=== PATIENT | male | born 1975 | race Caucasian/White ===

== ENCOUNTER → 2016-08-11 | Outpatient (CLI) | payer MEDICARE, MEDICAID | END | disposition home or self-care (01) | LOC: LAB.O 09:05 | PROVIDERS: ATTEND Family Medicine | DX: Z79.899 Other long term (current) drug therapy (principal); E55.9 Vitamin D deficiency, unspecified; E78.2 Mixed hyperlipidemia; G40.409 Other generalized epilepsy and epileptic syndromes, not intractable, without status epilepticus ==

== ENCOUNTER 2016-10-20 12:05 | Emergency (ER) | payer MEDICARE, MEDICAID ==
[2016-10-20 12:26] VITALS: TEMP 97.6
--- NOTE | 2016-10-20 13:08 | ED.PDOC ---
History of Present Illness - General Chief Complaint: Lower Extremity Injury Stated Complaint: RLE pain Time Seen by Provider: 10/20/16 12:38 Source: other - Caregiver/social insurance administrator Exam Limitations: other - mental retardation - History of Present Illness Initial Comments: Patient is a 40 yo with MR, institutionalized, who presents after caregivers noticed that he had a limp on his right leg today and had a fall onto his buttocks yesterday. No other information is available because of the patient's inability to communicate specifics but he can communicate that he is in pain. Timing/Duration: 24 hours Severity: mild Improving Factors: rest Worsening Factors: movement Associated Symptoms: other - unable to obtain more information Allergies/Adverse Reactions: Allergies Acetazolamide [From Diamox Sequels] Allergy (Verified 10/20/16 12:26) Home Medications: Ambulatory Orders Amoxicillin [Amoxil] 500 mg PO Q8HRS #30 cap 03/22/14 Carbamazepine Tab [Tegretol] 300 mg PO BID 03/22/14 Carbamide Peroxide Otic [Debrox Otic] 15 ml BOTH_EARS WKLY 03/22/14 Clorazepate Dipotassium [Tranxene T] 7.5 mg PO TID 03/22/14 Clorazepate Dipotassium [Tranxene T] 15 mg PO BEDTIME 03/22/14 Lamotrigine [Lamictal Odt] 125 mg PO TID 03/22/14 Loratadine [Claritin] 10 mg PO DAILY 03/22/14 Phenytoin Sodium Cap [Dilantin Cap] 100 mg PO DAILY 03/22/14 Phenytoin Sodium Cap [Dilantin Cap] 300 mg PO BEDTIME 03/22/14 Risperidone [Risperdal] 3 mg PO BID 03/22/14 Rosuvastatin [Crestor] 2.5 mg PO DAILY 03/22/14 Tiagabine HCl [Gabitril] 12 mg PO TID 03/22/14 Topiramate [Topamax] 50 mg PO BID 03/22/14 Cephalexin [Keflex] 500 mg PO QID #28 cap 06/10/15 Review of Systems - Review of Systems Unable to Obtain Due To: condition, other - mental retardation Past Medical History (General) - Patient Medical History Hx Seizures: Yes Hx Stroke: No Hx Dementia: Yes Hx Asthma: Yes Hx Congestive Heart Failure: No Hx Diabetes: Yes - Vaccination History Hx Tetanus, Diphtheria Vaccination: No Hx Influenza Vaccination: No Hx Pneumococcal Vaccination: No - Social History Hx Tobacco Use: No Hx Chewing Tobacco Use: No Hx Alcohol Use: No Hx Substance Use: No Hx Substance Use Treatment: No Hx Depression: No - Female History Patient is a Female of Child Bearing Age (10 -59 yrs old): No Patient : No Family Medical History - Family History Mother Family History: Unknown Living Status: Unknown Physical Exam - Physical Exam General Appearance: Alert Respiratory: lungs clear Cardiovascular/Chest: normal peripheral pulses, regular rate, rhythm Gastrointestinal/Abdominal: normal bowel sounds, non tender, soft Extremity: other - passive flexion and extension of the right hip do not cause pain. Right hip is NTTP. Lumbar vertebrae are NTTP. Right knee is stable with negative Michelle's sign. Patient does not show any signs of pain with varus and valgus tests. Progress - Progress Progress: 10/20/16 15:20 5 view of lumbar showed possible L3 endplate fracture. CT lumbar confirmed this but it is unclear if it is acute or not. 2 view of right hip was normal. Departure - Departure Clinical Impression: Lumbar vertebral fracture Disposition: Discharge to Home or Self Care Condition: Good Departure Forms: ED Discharge - Pt. Copy, Patient Portal Self Enrollment Diet: resume usual diet Activity: no exercise, no lifting, other Referrals: Valentin Reed III, MD [Primary Care Provider] - 1-2 Weeks Home Medications: Ambulatory Orders Amoxicillin [Amoxil] 500 mg PO Q8HRS #30 cap 03/22/14 Carbamazepine Tab [Tegretol] 300 mg PO BID 03/22/14 Carbamide Peroxide Otic [Debrox Otic] 15 ml BOTH_EARS WKLY 03/22/14 Clorazepate Dipotassium [Tranxene T] 7.5 mg PO TID 03/22/14 Clorazepate Dipotassium [Tranxene T] 15 mg PO BEDTIME 03/22/14 Lamotrigine [Lamictal Odt] 125 mg PO TID 03/22/14 Loratadine [Claritin] 10 mg PO DAILY 03/22/14 Phenytoin Sodium Cap [Dilantin Cap] 100 mg PO DAILY 03/22/14 Phenytoin Sodium Cap [Dilantin Cap] 300 mg PO BEDTIME 03/22/14 Risperidone [Risperdal] 3 mg PO BID 03/22/14 Rosuvastatin [Crestor] 2.5 mg PO DAILY 03/22/14 Tiagabine HCl [Gabitril] 12 mg PO TID 03/22/14 Topiramate [Topamax] 50 mg PO BID 03/22/14 Cephalexin [Keflex] 500 mg PO QID #28 cap 06/10/15 Additional Instructions: No lifting more than 15 pounds for 6 weeks. Refrain from exercise for 6 weeks or until cleared by neurosurgeon. May return to regular daily activity as tolerated. May use tylenol or ibuprofen as directed. Heating pad to lower back twice per day for 4 weeks. Follow up with primary care physician in 2 weeks for recheck of the lower back.
--- NOTE | 2016-10-20 13:18 | RAD ---
EXAM DESCRIPTION: Hip,Right 2 Views CLINICAL HISTORY: Right hip pain. Fall injury FINDINGS/ IMPRESSION: No fracture or osteochondral lesion. Inferior acetabular osteophyte ridge. Normal mineralization. No advanced osteoarthritis. No fracture of the pelvis Electronically signed by: Genaro Koehler MD 10/20/2016 1:17 PM CDT
--- NOTE | 2016-10-20 13:20 | RAD ---
EXAM DESCRIPTION: Lumbar Spine 5 Views CLINICAL HISTORY: 40 years Male, pain after fall IMPRESSION: Five views of the lumbar spine. There is normal alignment. There is a possible superior endplate fracture of L3. No degenerative retropulsion. Remaining vertebral body heights are unremarkable. I would recommend an MRI of the lumbar spine. No osseous lesion noted. Electronically signed by: Xavier Davalos MD 10/20/2016 1:19 PM CDT
--- NOTE | 2016-10-20 14:57 | CT ---
EXAM DESCRIPTION: Lumbar Spine CLINICAL HISTORY: 40 years, Male, possible lumbar fracture COMPARISON: None TECHNIQUE: Lumbar CT with thin-section axial imaging with reconstructed MPR images reviewed as well. This exam was performed according to our departmental dose-optimization program, which includes automated exposure control, adjustment of the mA and/or kV according to patient size and/or use of iterative reconstruction technique. FINDINGS: Noncontrast CT of the lumbar spine with MPR reformatted images demonstrates normal alignment. There is very slight impaction of the superior endplate of L3 particularly anteriorly with no definite fracture of the anterior cortex identified. This could represent either a new or old abnormality. There is no associated paraspinous hematoma or disruption of the fat planes. The other vertebral bodies appear intact and unremarkable. Discrete acute fracture lines within the superior endplate of L3 to confirm an acute abnormality is not identified. Disc contours from L3-4 cephalad are essentially normal. At L4-5, there is a modest central and left parasagittal disc protrusion, age indeterminate but focal increased clearly abnormal and different than a generalized annular bulge. No significant stenosis of the canal is seen. At L5-S1 and generalized annular bulge that is most prominent centrally and minimally asymmetric and prominent to the left suggesting a minimal component of disc protrusion is present. No severe or significant neural compression is seen. IMPRESSION: 1. Mild central and anterior impaction of the superior endplate of L3 without loss of anterior vertebral height without distinct fracture lines or paraspinous hematoma noted. I'm uncertain whether this represents an acute or old abnormality but no convincing changes to confirm an acute fracture is evident 2. Bony spine is otherwise normal and the disc spaces are normal from L3-4 cephalad. 3. Modest central and left parasagittal disc protrusion L4-5 without stenosis 4. Annular bulge L5-S1 with mild central and left-sided prominence but without significant neural compression. Electronically signed by: Genaro Luz MD 10/20/2016 2:56 PM CDT
[2016-10-20 15:13] VITALS: BP 132/87; O2SAT 97
== END 2016-10-20 15:32 | disposition home or self-care (01) ==
LOC: ER 12:05
DX: S32.039A Unspecified fracture of third lumbar vertebra, initial encounter for closed fracture (principal); E11.9 Type 2 diabetes mellitus without complications; J45.909 Unspecified asthma, uncomplicated; F03.90 Unspecified dementia, unspecified severity, without behavioral disturbance, psychotic disturbance, mood disturbance, and anxiety; F79 Unspecified intellectual disabilities; Z88.8 Allergy status to other drugs, medicaments and biological substances; Z79.899 Other long term (current) drug therapy; W19.XXXA Unspecified fall, initial encounter; Y92.9 Unspecified place or not applicable

== ENCOUNTER → 2017-03-29 | Emergency (ER) | payer MEDICARE, MEDICAID ==
[~2017-03-29] MED LIST: CLINDAMYCIN PHOSPHATE 150 MG/ML VIAL IM ONE; IPRATROPIUM/ALBUTEROL 3 ML VIAL NEB ONE
[2017-03-30 04:18] VITALS: O2SAT 98
--- NOTE | 2017-03-30 05:38 | RAD ---
EXAM DESCRIPTION: Chest,1 View CLINICAL HISTORY: possible aspiration COMPARISON: None. FINDINGS: Single frontal view of the chest. The cardiomediastinal silhouette has normal size and contour. Left lower lung consolidation with possible left pleural effusion. No pneumothorax. No displaced rib fractures identified. Upper abdominal soft tissues are unremarkable. IMPRESSION: 1. Left lower lobe consolidation concerning for pneumonia with likely small left pleural effusion. Electronically signed by: Brent Pabon 03/30/2017 5:37 AM [facility]
== END ==
LOC: ER 17:46
DX: J69.0 Pneumonitis due to inhalation of food and vomit (principal)
CPT/HCPCS: 94640; J3490; J7620

== ENCOUNTER 2017-05-10 17:32 | Emergency (ER) | payer MEDICARE, MEDICAID ==
[2017-05-10 17:53] VITALS: TEMP 97.8
--- NOTE | 2017-05-10 18:02 | ED.PDOC ---
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 IT IS UNKNOWN WHETHER OR NOT PT HAS HAD FEVER. HPI AND ROS LIMITED DUE TO PTS MENTAL CAPACITY. Timing/Duration: week Cough Quality/Degree: moderate Improving Factors: nothing Worsening Factors: nothing Associated Symptoms: cough, other - DIARRHEA Allergies/Adverse Reactions: Allergies Acetazolamide [From Diamox Sequels] Allergy (Verified 05/10/17 17:53) Home Medications: Ambulatory Orders Amoxicillin [Amoxil] 500 mg PO Q8HRS #30 cap 03/22/14 Carbamazepine Tab [Tegretol] 300 mg PO BID 03/22/14 Carbamide Peroxide Otic [Debrox Otic] 15 ml BOTH_EARS WKLY 03/22/14 Clorazepate Dipotassium [Tranxene T] 7.5 mg PO TID 03/22/14 Clorazepate Dipotassium [Tranxene T] 15 mg PO BEDTIME 03/22/14 Lamotrigine [Lamictal Odt] 125 mg PO TID 03/22/14 Loratadine [Claritin] 10 mg PO DAILY 03/22/14 Phenytoin Sodium Cap Extended [Dilantin Cap] 100 mg PO DAILY 03/22/14 Phenytoin Sodium Cap Extended [Dilantin Cap] 300 mg PO BEDTIME 03/22/14 Risperidone [Risperdal] 3 mg PO BID 03/22/14 Rosuvastatin [Crestor] 2.5 mg PO DAILY 03/22/14 Tiagabine HCl [Gabitril] 12 mg PO TID 03/22/14 Topiramate [Topamax] 50 mg PO BID 03/22/14 Cephalexin [Keflex] 500 mg PO QID #28 cap 06/10/15 Albuterol Inhaler [Ventolin Hfa Inhaler] 2 puff INH Q4HR PRN #1 inh 05/10/17 Albuterol Sulfate Nebs [Proventil Nebs] 2.5 mg INH Q4HR PRN #90 vial 05/10/17 Benzonatate Perles [Tessalon Perles] 200 mg PO TID PRN #30 cap 05/10/17 Levofloxacin [Levaquin] 750 mg PO DAILY 5 Days #5 tablet 05/10/17 Spacer/Aerosol-Holding Chamber [Aerochamber Plus] 1 mis INH DAILY #1 05/10/17 Review of Systems - Review of Systems Constitutional: States: see HPI Respiratory: States: see HPI, cough. Denies: short of breath Cardiology: States: see HPI Gastrointestinal/Abdominal: States: diarrhea. 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 Surgical History: no surgical history - Vaccination History Hx Tetanus, Diphtheria Vaccination: No Hx Influenza Vaccination: No Hx Pneumococcal Vaccination: No Immunizations Up to Date: Yes - Social History Hx Tobacco Use: No Hx Chewing Tobacco Use: No Hx Alcohol Use: No Hx Substance Use: No Hx Substance Use Treatment: No Hx Depression: No - Female History Patient : No Family Medical History - Family History Mother Family History: Unknown Living Status: Unknown Physical Exam - Physical Exam General Appearance: Alert, Comfortable, No apparent distress, Well Groomed, Well Hydrated, Well Nourished ENT Exam: normal ENT inspection Neck: non-tender, normal inspection Respiratory: lungs clear, no respiratory distress, no accessory muscle use, decreased breath sounds Cardiovascular/Chest: regular rate, rhythm, no murmur Gastrointestinal/Abdominal: non tender, soft Extremity: normal inspection Neurologic: alert Skin Exam: normal color, warm/dry Departure - Departure Clinical Impression: Acute bronchitis Time of Disposition: 18:46 Disposition: Discharge to Asst Living Condition: Good Departure Forms: ED Discharge - Pt. Copy, Patient Portal Self Enrollment Instructions: DI for Acute Bronchitis Diet: resume usual diet Activity: increase activity as tolerated Referrals: Valentin Reed III, MD [Primary Care Provider] - 1-5 Days Prescriptions: Albuterol Inhaler [Ventolin Hfa Inhaler] 2 puff INH Q4HR PRN #1 inh PRN Reason: Shortness Of Breath/Wheezing Albuterol Sulfate Nebs [Proventil Nebs] 2.5 mg INH Q4HR PRN #90 vial PRN Reason: Shortness Of Breath/Wheezing Benzonatate Perles [Tessalon Perles] 200 mg PO TID PRN #30 cap PRN Reason: Cough Levofloxacin [Levaquin] 750 mg PO DAILY 5 Days #5 tablet Spacer/Aerosol-Holding Chamber [Aerochamber Plus] 1 mis INH DAILY #1 Home Medications: Ambulatory Orders Amoxicillin [Amoxil] 500 mg PO Q8HRS #30 cap 03/22/14 Carbamazepine Tab [Tegretol] 300 mg PO BID 03/22/14 Carbamide Peroxide Otic [Debrox Otic] 15 ml BOTH_EARS WKLY 03/22/14 Clorazepate Dipotassium [Tranxene T] 7.5 mg PO TID 03/22/14 Clorazepate Dipotassium [Tranxene T] 15 mg PO BEDTIME 03/22/14 Lamotrigine [Lamictal Odt] 125 mg PO TID 03/22/14 Loratadine [Claritin] 10 mg PO DAILY 03/22/14 Phenytoin Sodium Cap Extended [Dilantin Cap] 100 mg PO DAILY 03/22/14 Phenytoin Sodium Cap Extended [Dilantin Cap] 300 mg PO BEDTIME 03/22/14 Risperidone [Risperdal] 3 mg PO BID 03/22/14 Rosuvastatin [Crestor] 2.5 mg PO DAILY 03/22/14 Tiagabine HCl [Gabitril] 12 mg PO TID 03/22/14 Topiramate [Topamax] 50 mg PO BID 03/22/14 Cephalexin [Keflex] 500 mg PO QID #28 cap 06/10/15 Albuterol Inhaler [Ventolin Hfa Inhaler] 2 puff INH Q4HR PRN #1 inh 05/10/17 Albuterol Sulfate Nebs [Proventil Nebs] 2.5 mg INH Q4HR PRN #90 vial 05/10/17 Benzonatate Perles [Tessalon Perles] 200 mg PO TID PRN #30 cap 05/10/17 Levofloxacin [Levaquin] 750 mg PO DAILY 5 Days #5 tablet 05/10/17 Spacer/Aerosol-Holding Chamber [Aerochamber Plus] 1 mis INH DAILY #1 05/10/17
--- NOTE | 2017-05-10 18:21 | RAD ---
EXAM DESCRIPTION: Chest,1 View CLINICAL HISTORY: cough COMPARISON: 03/29/2017 FINDINGS: Cardiac silhouette is within normal limits. There is consolidation that has improved at the left lung base. Bilateral peribronchial cuffing is present. Visualized osseous structures are within normal limits. IMPRESSION: Improved left lung base consolidation. Edema/inflammation of the airways. Electronically signed by: Balbir Solomon 05/10/2017 6:20 PM [employer]
[2017-05-10] MEDS ORDERED: IPRATROPIUM/ALBUTEROL 3 ML VIAL NEB ONE (18:23)
[2017-05-10] MEDS ORDERED: levoFLOXacin 500 MG TAB PO ONE (18:23)
[2017-05-10] MEDS ORDERED: BENZONATATE PERLES 100 MG CAP PO ONE (18:23)
[2017-05-10 19:02] VITALS: BP 147/82; O2SAT 97
--- NOTE | 2017-05-12 09:33 | RAD ---
EXAM DESCRIPTION: Chest,1 View CLINICAL HISTORY: cough COMPARISON: 03/29/2017 FINDINGS: Cardiac silhouette is within normal limits. There is consolidation that has improved at the left lung base. Bilateral peribronchial cuffing is present. Visualized osseous structures are within normal limits. IMPRESSION: Improved left lung base consolidation. Edema/inflammation of the airways. Electronically signed by: Balbir Solomon 05/10/2017 6:20 PM [facility]
== END 2017-05-10 19:02 ==
LOC: ER 17:32
DX: J20.9 Acute bronchitis, unspecified (principal); E11.9 Type 2 diabetes mellitus without complications; F03.90 Unspecified dementia, unspecified severity, without behavioral disturbance, psychotic disturbance, mood disturbance, and anxiety; F79 Unspecified intellectual disabilities; Z87.820 Personal history of traumatic brain injury
CPT/HCPCS: 71045; 87502; 94640; J7620

== ENCOUNTER → 2017-08-17 | Outpatient (CLI) | payer MEDICARE, MEDICAID | LOC: LAB.O 09:09 | PROVIDERS: ATTEND Family Medicine | DX: E78.2 Mixed hyperlipidemia (principal); G40.909 Epilepsy, unspecified, not intractable, without status epilepticus; E53.8 Deficiency of other specified B group vitamins; E55.9 Vitamin D deficiency, unspecified; Z79.899 Other long term (current) drug therapy ==

== ENCOUNTER → 2017-08-26 | Outpatient (CLI) | payer MEDICARE, MEDICAID | LOC: GMAL 14:25 | PROVIDERS: ATTEND Family Medicine | DX: R33.8 Other retention of urine (principal); Z12.5 Encounter for screening for malignant neoplasm of prostate | CPT/HCPCS: 87086; G0103 ==

== ENCOUNTER → 2017-08-27 | Outpatient (CLI) | payer MEDICARE, MEDICAID ==
--- NOTE | 2017-08-28 10:01 | US ---
EXAM DESCRIPTION: Renal and bladder sonogram CLINICAL HISTORY: 41 years Male, RETENTION OF URINE COMPARISON: None. TECHNIQUE: Retroperitoneal sonogram was performed to evaluate the kidneys and bladder. FINDINGS: Right kidney Right renal length is 11.5 cm. Renal cortical thickness and echogenicity are normal. No right renal mass or shadowing stone. No hydronephrosis. Small cyst in the upper right kidney measures 1.3 cm. Left kidney Left renal length is 11.1 cm. Renal cortical thickness and echogenicity are normal. No left renal mass or cyst. Small echogenic focus measuring 5 mm is seen without shadowing. No hydronephrosis. Urinary bladder Bladder wall thickness is normal for degree of distention. No bladder mass. Bladder volume is measured as 61.6 mL. After voiding, repeat measurement shows post void volume of 4 mL. IMPRESSION: Normal sonographic appearance of the kidneys. Unremarkable appearance of the partially filled urinary bladder. Electronically signed by: Mitchell Liang MD 08/28/2017 9:59 AM CDT
== END ==
LOC: US 07:40
PROVIDERS: ATTEND Family Medicine
DX: R33.8 Other retention of urine (principal)

== ENCOUNTER 2018-08-29 17:34 | Emergency (ER) | payer MEDICARE, MEDICAID ==
[2018-08-29] MEDS ORDERED: IPRATROPIUM/ALBUTEROL 3 ML VIAL NEB ONE (17:54)
[2018-08-29 18:15] VITALS: TEMP 98.9
--- NOTE | 2018-08-29 18:22 | RAD ---
EXAM: XR Chest, 2 Views CLINICAL HISTORY: 42 years old and is Male; possible aspiration TECHNIQUE: Frontal and lateral views of the chest. COMPARISON: 05/10/2017 FINDINGS: Limitations: None. Lungs: There is diffuse increased interstitial density which is most prominent in the perihilar regions left greater than right. Pleural space: Unremarkable. No pneumothorax. Heart: Stable cardiac enlargement. Mediastinum: Unremarkable. Bones/joints: Unremarkable. IMPRESSION: There is diffuse increased interstitial density which is nonspecific but can be seen with chemical pneumonitis from aspiration. Electronically signed by: Christie Jean MD 08/29/2018 6:20 PM CDT
[2018-08-29] MEDS ORDERED: AMOXICILLIN & POT CLAVULANATE 875 MG TAB PO ONE (18:25)
--- NOTE | 2018-08-29 18:30 | ED.PDOC ---
History of Present Illness - General Chief Complaint: Respiratory Problem Stated Complaint: choked on food Time Seen by Provider: 08/29/18 17:38 Source: patient, other Exam Limitations: clinical condition - History of Present Illness Initial Comments: The patient is a 42-year-old male who is impaired long-term mentally presenting with a caregiver secondary to what appears to be an episode of aspiration. He was eating chicken on a business trip when he started coughing extensively with a large amount of phlegm production until he throughout. episode lasted 10-15 minutes. By the time I see him here he is not coughing at all. No increased secretions. No difficulty with breathing. He is not hypoxic. No distress whatsoever at this time. He does have bibasilar crackles but according to his previous x-rays he does have long-standing atelectasis versus small effusions bilaterally. He is moving air on both sides. Again he appears to be in no distress. He is not able to communicate very much on his own. Severity: severe Improving Factors: nothing Worsening Factors: nothing Allergies/Adverse Reactions: Allergies Acetazolamide [From Diamox Sequels] Allergy (Verified 05/10/17 17:53) Home Medications: Ambulatory Orders Amoxicillin [Amoxil] 500 mg PO Q8HRS #30 cap 03/22/14 Carbamazepine Tab [Tegretol] 300 mg PO BID 03/22/14 Carbamide Peroxide Otic [Debrox Otic] 15 ml BOTH_EARS WKLY 03/22/14 Clorazepate Dipotassium [Tranxene T] 7.5 mg PO TID 03/22/14 Clorazepate Dipotassium [Tranxene T] 15 mg PO BEDTIME 03/22/14 Lamotrigine [Lamictal Odt] 125 mg PO TID 03/22/14 Loratadine [Claritin] 10 mg PO DAILY 03/22/14 Phenytoin Sodium Cap Extended [Dilantin Cap] 100 mg PO DAILY 03/22/14 Phenytoin Sodium Cap Extended [Dilantin Cap] 300 mg PO BEDTIME 03/22/14 Risperidone [Risperdal] 3 mg PO BID 03/22/14 Rosuvastatin [Crestor] 2.5 mg PO DAILY 03/22/14 Tiagabine HCl [Gabitril] 12 mg PO TID 03/22/14 Topiramate [Topamax] 50 mg PO BID 03/22/14 Cephalexin [Keflex] 500 mg PO QID #28 cap 06/10/15 Albuterol Inhaler [Ventolin Hfa Inhaler] 2 puff INH Q4HR PRN #1 inh 05/10/17 Albuterol Sulfate Nebs [Proventil Nebs] 2.5 mg INH Q4HR PRN #90 vial 05/10/17 Benzonatate Perles [Tessalon Perles] 200 mg PO TID PRN #30 cap 05/10/17 Levofloxacin [Levaquin] 750 mg PO DAILY 5 Days #5 tablet 05/10/17 Spacer/Aerosol-Holding Chamber [Aerochamber Plus] 1 mis INH DAILY #1 05/10/17 Amoxicillin & Pot Clavulanate [Augmentin Tab] 875 mg PO BID #10 tab 08/29/18 Review of Systems - Review of Systems Review of Systems: 08/29/18 18:30 unable to obtain secondary to long-term mental status. He appears to be at his baseline at this time however. Past Medical History (General) - Patient Medical History Hx Seizures: Yes Hx Stroke: No Hx Dementia: Yes Hx Asthma: Yes Hx Congestive Heart Failure: No Hx Diabetes: Yes Surgical History: no surgical history - Vaccination History Hx Tetanus, Diphtheria Vaccination: No Hx Influenza Vaccination: Yes Hx Pneumococcal Vaccination: No - Social History Hx Tobacco Use: No Hx Chewing Tobacco Use: No Hx Alcohol Use: No Hx Substance Use: No Hx Substance Use Treatment: No Hx Depression: No - Female History Patient : No Family Medical History - Family History Mother Family History: Unknown Living Status: Unknown Physical Exam - Physical Exam General Appearance: Alert, Comfortable, No apparent distress Ears, Nose, Throat: hearing grossly normal, normal pharynx - poor dentition, other - chronic changes Neck: non-tender, supple Respiratory: no respiratory distress, no accessory muscle use, other - see history of present illness Cardiovascular/Chest: normal peripheral pulses, no edema, other - regular rate Peripheral Pulses: radial,right: 2+, radial,left: 2+ Gastrointestinal/Abdominal: non tender - obese, soft Rectal Exam: deferred Back Exam: no CVA tenderness, no vertebral tenderness Extremity: non-tender, no pedal edema, normal capillary refill 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 Skin Exam: normal color Comments: Vital Signs - 24 hr 08/29/18 08/29/18 17:40 18:28 Temperature 98.9 F Pulse Rate 88 Pulse Rate [ 76 right brachial] Respiratory 20 20 Rate Blood Pressure 144/103 [right brachial ] O2 Sat by Pulse 95 95 Oximetry Progress - Progress Progress: 08/29/18 18:32 the patient's a 42-year-old male presenting after what appears to be an aspiration episode. He is breathing well at this time. clinically it seems he has cleared his airway. He has received a breathing treatment here. No hypoxia and no distress. He is going to be placed on Augmentin for 5 days essentially as a prophylactic measure. Keep follow-up with primary care doctor later in the week. ER warnings were given. Continue routine medications otherwise. 08/29/18 18:35 - Results/Orders Results/Orders: chest x-ray shows chronic interstitial changes. No obvious large new pneumonia. No pneumothorax. Departure - Departure Clinical Impression: Aspiration into airway Qualifiers: Encounter type: initial encounter Qualified Code(s): T17.908A - Unspecified foreign body in respiratory tract, part unspecified causing other injury, initial encounter Disposition: Discharge to Home or Self Care Condition: Fair Departure Forms: ED Discharge - Pt. Copy, Patient Portal Self Enrollment Instructions: Aspiration Pneumonia Diet: regular diet Activity: increase activity as tolerated Referrals: Valentin Reed III, MD [Primary Care Provider] - 1-2 Weeks Prescriptions: Amoxicillin & Pot Clavulanate [Augmentin Tab] 875 mg PO BID #10 tab Home Medications: Ambulatory Orders Amoxicillin [Amoxil] 500 mg PO Q8HRS #30 cap 03/22/14 Carbamazepine Tab [Tegretol] 300 mg PO BID 03/22/14 Carbamide Peroxide Otic [Debrox Otic] 15 ml BOTH_EARS WKLY 03/22/14 Clorazepate Dipotassium [Tranxene T] 7.5 mg PO TID 03/22/14 Clorazepate Dipotassium [Tranxene T] 15 mg PO BEDTIME 03/22/14 Lamotrigine [Lamictal Odt] 125 mg PO TID 03/22/14 Loratadine [Claritin] 10 mg PO DAILY 03/22/14 Phenytoin Sodium Cap Extended [Dilantin Cap] 100 mg PO DAILY 03/22/14 Phenytoin Sodium Cap Extended [Dilantin Cap] 300 mg PO BEDTIME 03/22/14 Risperidone [Risperdal] 3 mg PO BID 03/22/14 Rosuvastatin [Crestor] 2.5 mg PO DAILY 03/22/14 Tiagabine HCl [Gabitril] 12 mg PO TID 03/22/14 Topiramate [Topamax] 50 mg PO BID 03/22/14 Cephalexin [Keflex] 500 mg PO QID #28 cap 06/10/15 Albuterol Inhaler [Ventolin Hfa Inhaler] 2 puff INH Q4HR PRN #1 inh 05/10/17 Albuterol Sulfate Nebs [Proventil Nebs] 2.5 mg INH Q4HR PRN #90 vial 05/10/17 Benzonatate Perles [Tessalon Perles] 200 mg PO TID PRN #30 cap 05/10/17 Levofloxacin [Levaquin] 750 mg PO DAILY 5 Days #5 tablet 05/10/17 Spacer/Aerosol-Holding Chamber [Aerochamber Plus] 1 mis INH DAILY #1 05/10/17 Amoxicillin & Pot Clavulanate [Augmentin Tab] 875 mg PO BID #10 tab 08/29/18 Additional Instructions: the patient's a 42-year-old male presenting after what appears to be an aspiration episode. He is breathing well at this time. He has received a breathing treatment here. No hypoxia and no distress. He is going to be placed on Augmentin for 5 days essentially as a prophylactic measure. Keep follow-up with primary care doctor later in the week. ER warnings were given. Continue routine medications otherwise.
[2018-08-29 19:19] VITALS: BP 143/89; O2SAT 98
== END 2018-08-29 19:19 | disposition home or self-care (01) ==
LOC: ER 17:34
DX: T17.908A Unspecified foreign body in respiratory tract, part unspecified causing other injury, initial encounter (principal); F03.90 Unspecified dementia, unspecified severity, without behavioral disturbance, psychotic disturbance, mood disturbance, and anxiety; J45.909 Unspecified asthma, uncomplicated; E11.9 Type 2 diabetes mellitus without complications; R56.9 Unspecified convulsions; Z79.899 Other long term (current) drug therapy; Z88.8 Allergy status to other drugs, medicaments and biological substances
CPT/HCPCS: 71046; 94640; J7620

== ENCOUNTER 2019-01-18 17:51 | Emergency (ER) | payer MEDICARE, MEDICAID ==
--- NOTE | 2019-01-18 19:12 | RAD ---
EXAM DESCRIPTION: XR Chest, 2 Views CLINICAL HISTORY: 43 years Male choked on food now sob. TECHNIQUE: Two views of the chest. COMPARISON: Comparison is made to the prior examination dated 08/29/2018. FINDINGS: Patient is significantly rotated to the left, limiting evaluation. Lung volumes are low with diffuse hazy airspace opacities bilaterally, left greater than right. Probable air bronchograms on the left. Cannot evaluate cardiac size. No visualized pneumothorax. IMPRESSION: Limited examination with diffusely increased airspace opacities and possible air bronchograms, concerning for infection vs. aspiration vs. edema. Continued follow-up with straight PA and lateral radiographs recommended. Electronically signed by: Kath Encarnacion MD 01/18/2019 7:11 PM CDT
[2019-01-18] MEDS ORDERED: CLINDAMYCIN HCL CAP 150 MG CAP PO ONE (20:43)
--- NOTE | 2019-01-18 20:47 | ED.PDOC ---
History of Present Illness - General Chief Complaint: Respiratory Problem Stated Complaint: Choked on a piece of meat Time Seen by Provider: 01/18/19 18:40 Source: patient, RN notes reviewed, Vital Signs reviewed, [facility] records, other - care givers Exam Limitations: other - pt with mental retardation and developmental delay - History of Present Illness Initial Comments: Pt presents from senior living after choking on a piece of pork loin. Care givers gave him a Heimlich maneuver x 2 w/o success. The pt vomited it out and then aspirated. Pt is tolerating po. 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 Allergies/Adverse Reactions: Allergies Acetazolamide [From Diamox Sequels] Allergy (Verified 05/10/17 17:53) Home Medications: Ambulatory Orders Amoxicillin [Amoxil] 500 mg PO Q8HRS #30 cap 03/22/14 Carbamazepine Tab [Tegretol] 300 mg PO BID 03/22/14 Carbamide Peroxide Otic [Debrox Otic] 15 ml BOTH_EARS WKLY 03/22/14 Clorazepate Dipotassium [Tranxene T] 7.5 mg PO TID 03/22/14 Clorazepate Dipotassium [Tranxene T] 15 mg PO BEDTIME 03/22/14 Lamotrigine [Lamictal Odt] 125 mg PO TID 03/22/14 Loratadine [Claritin] 10 mg PO DAILY 03/22/14 Phenytoin Sodium Cap Extended [Dilantin Cap] 100 mg PO DAILY 03/22/14 Phenytoin Sodium Cap Extended [Dilantin Cap] 300 mg PO BEDTIME 03/22/14 Risperidone [Risperdal] 3 mg PO BID 03/22/14 Rosuvastatin [Crestor] 2.5 mg PO DAILY 03/22/14 Tiagabine HCl [Gabitril] 12 mg PO TID 03/22/14 Topiramate [Topamax] 50 mg PO BID 03/22/14 Cephalexin [Keflex] 500 mg PO QID #28 cap 06/10/15 Albuterol Inhaler [Ventolin Hfa Inhaler] 2 puff INH Q4HR PRN #1 inh 05/10/17 Albuterol Sulfate Nebs [Proventil Nebs] 2.5 mg INH Q4HR PRN #90 vial 05/10/17 Benzonatate Perles [Tessalon Perles] 200 mg PO TID PRN #30 cap 05/10/17 Levofloxacin [Levaquin] 750 mg PO DAILY 5 Days #5 tablet 05/10/17 Spacer/Aerosol-Holding Chamber [Aerochamber Plus] 1 mis INH DAILY #1 05/10/17 Amoxicillin & Pot Clavulanate [Augmentin Tab] 875 mg PO BID #10 tab 08/29/18 Clindamycin HCl [Clindamycin Hydrochloride] 300 mg PO QID #40 cap 01/18/19 Review of Systems - Review of Systems Unable to Obtain Due To: other - pts mental retardation Past Medical History (General) - Patient Medical History Hx Seizures: Yes Hx Stroke: No Hx Dementia: Yes Hx Asthma: Yes Hx Congestive Heart Failure: No Hx Diabetes: No Hx Gastroesophageal Reflux: Yes - Vaccination History Hx Tetanus, Diphtheria Vaccination: No Hx Influenza Vaccination: Yes Hx Pneumococcal Vaccination: No - Social History Hx Tobacco Use: No Hx Chewing Tobacco Use: No Hx Alcohol Use: No Hx Substance Use: No Hx Substance Use Treatment: No Hx Depression: No - Female History Patient : No - Triage Comment ED Triage Comment: Pt lives in a senior living Family Medical History - Family History Mother Family History: Unknown Living Status: Unknown Physical Exam - Physical Exam General Appearance: Alert, Comfortable, Obese, Playful, Well Hydrated, Well Nourished Eye Exam: bilateral normal Ears, Nose, Throat: hearing grossly normal, normal ENT inspection, normal pharynx Neck: non-tender, full range of motion, supple Respiratory: chest non-tender, no respiratory distress, no accessory muscle use, rhonchi - diffusely Cardiovascular/Chest: normal peripheral pulses, regular rate, rhythm, no murmur Gastrointestinal/Abdominal: normal bowel sounds, non tender, soft Extremity: normal range of motion, non-tender, normal inspection 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 O2 sats 99% on RA. Plan tx with abx. D/w caregivers and they voice understanding and agreement. Don Clarke Treichler, M.D. #[id number] Departure - Departure Clinical Impression: Foreign body in respiratory tract Qualifiers: Encounter type: initial encounter Qualified Code(s): T17.908A - Unspecified foreign body in respiratory tract, part unspecified causing other injury, initial encounter Pneumonia Qualifiers: Pneumonia type: aspiration pneumonia Aspiration pneumonia type: due to regurgitated food Laterality: bilateral Lung location: unspecified part of lung Qualified Code(s): J69.0 - Pneumonitis due to inhalation of food and vomit Disposition: Discharge to Home or Self Care Condition: Fair Departure Forms: ED Discharge - Pt. Copy, Patient Portal Self Enrollment Instructions: Aspiration Pneumonia (DC) Referrals: Valentin Reed III, MD [Primary Care Provider] - 1-2 Weeks Prescriptions: Clindamycin HCl [Clindamycin Hydrochloride] 300 mg PO QID #40 cap Home Medications: Ambulatory Orders Amoxicillin [Amoxil] 500 mg PO Q8HRS #30 cap 03/22/14 Carbamazepine Tab [Tegretol] 300 mg PO BID 03/22/14 Carbamide Peroxide Otic [Debrox Otic] 15 ml BOTH_EARS WKLY 03/22/14 Clorazepate Dipotassium [Tranxene T] 7.5 mg PO TID 03/22/14 Clorazepate Dipotassium [Tranxene T] 15 mg PO BEDTIME 03/22/14 Lamotrigine [Lamictal Odt] 125 mg PO TID 03/22/14 Loratadine [Claritin] 10 mg PO DAILY 03/22/14 Phenytoin Sodium Cap Extended [Dilantin Cap] 100 mg PO DAILY 03/22/14 Phenytoin Sodium Cap Extended [Dilantin Cap] 300 mg PO BEDTIME 03/22/14 Risperidone [Risperdal] 3 mg PO BID 03/22/14 Rosuvastatin [Crestor] 2.5 mg PO DAILY 03/22/14 Tiagabine HCl [Gabitril] 12 mg PO TID 03/22/14 Topiramate [Topamax] 50 mg PO BID 03/22/14 Cephalexin [Keflex] 500 mg PO QID #28 cap 06/10/15 Albuterol Inhaler [Ventolin Hfa Inhaler] 2 puff INH Q4HR PRN #1 inh 05/10/17 Albuterol Sulfate Nebs [Proventil Nebs] 2.5 mg INH Q4HR PRN #90 vial 05/10/17 Benzonatate Perles [Tessalon Perles] 200 mg PO TID PRN #30 cap 05/10/17 Levofloxacin [Levaquin] 750 mg PO DAILY 5 Days #5 tablet 05/10/17 Spacer/Aerosol-Holding Chamber [Aerochamber Plus] 1 mis INH DAILY #1 05/10/17 Amoxicillin & Pot Clavulanate [Augmentin Tab] 875 mg PO BID #10 tab 08/29/18 Clindamycin HCl [Clindamycin Hydrochloride] 300 mg PO QID #40 cap 01/18/19
[2019-01-18 21:14] VITALS: BP 88/67; TEMP 97.6; O2SAT 96
== END 2019-01-18 21:14 | disposition home or self-care (01) ==
LOC: ER 17:51
DX: T17.928A Food in respiratory tract, part unspecified causing other injury, initial encounter (principal); J69.0 Pneumonitis due to inhalation of food and vomit; F03.90 Unspecified dementia, unspecified severity, without behavioral disturbance, psychotic disturbance, mood disturbance, and anxiety; K21.9 Gastro-esophageal reflux disease without esophagitis; J45.909 Unspecified asthma, uncomplicated; F89 Unspecified disorder of psychological development; F79 Unspecified intellectual disabilities; Z56.9 Unspecified problems related to employment; Z79.899 Other long term (current) drug therapy; Z88.8 Allergy status to other drugs, medicaments and biological substances; Y92.199 Unspecified place in other specified residential institution as the place of occurrence of the external cause

== ENCOUNTER 2019-02-27 17:53 | Emergency (ER) | payer MEDICARE, MEDICAID ==
[2019-02-27 18:10] VITALS: TEMP 97.6; O2SAT 97
--- NOTE | 2019-02-27 18:11 | ED.PDOC ---
History of Present Illness - General Chief Complaint: Respiratory Problem Stated Complaint: choked on bread at dinner, coughed it up Time Seen by Provider: 02/27/19 17:56 Source: other - caregiver Exam Limitations: other - MR - History of Present Illness Initial Comments: 43 y/o M presents to the emergency department with his caregiver from the correction after a choking episode at dinner. The patient was eating his roll when he took a bite and started choking. He was then able to clear the piece of bread and has not had any respiratory distress or vomiting since this happened. He has been able to tolerate oral fluids without difficulty. He has a history of similar episodes in the past with meat where he had to undergo removal and so they wanted to get the patient evaluated today just to be safe. Allergies/Adverse Reactions: Allergies Acetazolamide [From Diamox Sequels] Allergy (Verified 05/10/17 17:53) Home Medications: Ambulatory Orders Amoxicillin [Amoxil] 500 mg PO Q8HRS #30 cap 03/22/14 Carbamazepine Tab [Tegretol] 300 mg PO BID 03/22/14 Carbamide Peroxide Otic [Debrox Otic] 15 ml BOTH_EARS WKLY 03/22/14 Clorazepate Dipotassium [Tranxene T] 7.5 mg PO TID 03/22/14 Clorazepate Dipotassium [Tranxene T] 15 mg PO BEDTIME 03/22/14 Lamotrigine [Lamictal Odt] 125 mg PO TID 03/22/14 Loratadine [Claritin] 10 mg PO DAILY 03/22/14 Phenytoin Sodium Cap Extended [Dilantin Cap] 100 mg PO DAILY 03/22/14 Phenytoin Sodium Cap Extended [Dilantin Cap] 300 mg PO BEDTIME 03/22/14 Risperidone [Risperdal] 3 mg PO BID 03/22/14 Rosuvastatin [Crestor] 2.5 mg PO DAILY 03/22/14 Tiagabine HCl [Gabitril] 12 mg PO TID 03/22/14 Topiramate [Topamax] 50 mg PO BID 03/22/14 Cephalexin [Keflex] 500 mg PO QID #28 cap 06/10/15 Albuterol Inhaler [Ventolin Hfa Inhaler] 2 puff INH Q4HR PRN #1 inh 05/10/17 Albuterol Sulfate Nebs [Proventil Nebs] 2.5 mg INH Q4HR PRN #90 vial 05/10/17 Benzonatate Perles [Tessalon Perles] 200 mg PO TID PRN #30 cap 05/10/17 Levofloxacin [Levaquin] 750 mg PO DAILY 5 Days #5 tablet 05/10/17 Spacer/Aerosol-Holding Chamber [Aerochamber Plus] 1 mis INH DAILY #1 05/10/17 Amoxicillin & Pot Clavulanate [Augmentin Tab] 875 mg PO BID #10 tab 08/29/18 Clindamycin HCl [Clindamycin Hydrochloride] 300 mg PO QID #40 cap 01/18/19 Review of Systems - Review of Systems Unable to Obtain Due To: other - MR Past Medical History (General) - Patient Medical History Hx Seizures: Yes Hx Stroke: No Hx Dementia: Yes Hx Asthma: Yes Hx Congestive Heart Failure: No Hx Diabetes: No Hx Gastroesophageal Reflux: Yes - Vaccination History Hx Tetanus, Diphtheria Vaccination: No Hx Influenza Vaccination: Yes Hx Pneumococcal Vaccination: No - Social History Hx Tobacco Use: No Hx Chewing Tobacco Use: No Hx Alcohol Use: No Hx Substance Use: No Hx Substance Use Treatment: No Hx Depression: No - Female History Patient : No Family Medical History - Family History Mother Family History: Unknown Living Status: Unknown Physical Exam - Physical Exam General Appearance: Alert, No apparent distress, Well Developed, Well Nourished Eye Exam: bilateral normal Ears, Nose, Throat: normal ENT inspection, normal pharynx Neck: supple, normal inspection Respiratory: lungs clear, normal breath sounds, no respiratory distress, no accessory muscle use Cardiovascular/Chest: regular rate, rhythm Neurologic: alert, other - moves all extremities, at baseline status per caregiver. Skin Exam: normal color, warm/dry Progress - Progress Progress: 02/27/19 18:08 The patient was seen and evaluated in the emergency department. He is at his baseline status and has been able to tolerate oral fluids without difficulty since the episode occurred. His lungs are clear to auscultation and he is in no respiratory distress and at this point I do not think that further imaging studies are indicated at this time as he quickly coughed up the piece of bread and did not have any episodes of vomiting or respiratory distress around the episode. I discussed this with the patient's caregiver and she was instructed to have the patient follow-up with his primary care physician and to return to the emergency department for any concerns. She voiced understanding. Departure - Departure Clinical Impression: Choked on food Time of Disposition: 18:09 Disposition: Discharge to Home or Self Care Condition: Good Departure Forms: ED Discharge - Pt. Copy, Patient Portal Self Enrollment Instructions: Choking Referrals: Valentin Reed III, MD [Primary Care Provider] - 1-5 Days Home Medications: Ambulatory Orders Amoxicillin [Amoxil] 500 mg PO Q8HRS #30 cap 03/22/14 Carbamazepine Tab [Tegretol] 300 mg PO BID 03/22/14 Carbamide Peroxide Otic [Debrox Otic] 15 ml BOTH_EARS WKLY 03/22/14 Clorazepate Dipotassium [Tranxene T] 7.5 mg PO TID 03/22/14 Clorazepate Dipotassium [Tranxene T] 15 mg PO BEDTIME 03/22/14 Lamotrigine [Lamictal Odt] 125 mg PO TID 03/22/14 Loratadine [Claritin] 10 mg PO DAILY 03/22/14 Phenytoin Sodium Cap Extended [Dilantin Cap] 100 mg PO DAILY 03/22/14 Phenytoin Sodium Cap Extended [Dilantin Cap] 300 mg PO BEDTIME 03/22/14 Risperidone [Risperdal] 3 mg PO BID 03/22/14 Rosuvastatin [Crestor] 2.5 mg PO DAILY 03/22/14 Tiagabine HCl [Gabitril] 12 mg PO TID 03/22/14 Topiramate [Topamax] 50 mg PO BID 03/22/14 Cephalexin [Keflex] 500 mg PO QID #28 cap 06/10/15 Albuterol Inhaler [Ventolin Hfa Inhaler] 2 puff INH Q4HR PRN #1 inh 05/10/17 Albuterol Sulfate Nebs [Proventil Nebs] 2.5 mg INH Q4HR PRN #90 vial 05/10/17 Benzonatate Perles [Tessalon Perles] 200 mg PO TID PRN #30 cap 05/10/17 Levofloxacin [Levaquin] 750 mg PO DAILY 5 Days #5 tablet 05/10/17 Spacer/Aerosol-Holding Chamber [Aerochamber Plus] 1 mis INH DAILY #1 05/10/17 Amoxicillin & Pot Clavulanate [Augmentin Tab] 875 mg PO BID #10 tab 08/29/18 Clindamycin HCl [Clindamycin Hydrochloride] 300 mg PO QID #40 cap 01/18/19 Additional Instructions: Resume all normal medications. Return for recurrent choking episodes or other concerns otherwise follow up with PCP. Comments: Melissa Hooper DO [facility]#[id number]
[2019-02-27 18:18] VITALS: BP 126/82
== END 2019-02-27 18:15 | disposition home or self-care (01) ==
LOC: ER 17:53
DX: R09.89 Other specified symptoms and signs involving the circulatory and respiratory systems (principal); J45.909 Unspecified asthma, uncomplicated; F03.90 Unspecified dementia, unspecified severity, without behavioral disturbance, psychotic disturbance, mood disturbance, and anxiety; K21.9 Gastro-esophageal reflux disease without esophagitis; Z79.899 Other long term (current) drug therapy

== ENCOUNTER 2019-05-17 08:48 | Emergency (ER) | payer MEDICARE, MEDICAID ==
[2019-05-17 09:01] VITALS: TEMP 97; O2SAT 95
--- NOTE | 2019-05-17 09:05 | ED.PDOC ---
History of Present Illness - General Chief Complaint: Neuro Symptoms/Deficits Stated Complaint: possible right side facial droop Time Seen by Provider: 05/17/19 08:52 Source: patient Exam Limitations: no limitations - History of Present Illness Initial Comments: the patient's a 43-year-old male with long-term seizures and what is listed on his paperwork is chronic encephalopathy. The patient does sign a little bit but otherwise he does not communicate with verbal speech. Caregiver reports that she noticed what appeared to be a mild right sided droop to the corner of his mouth at about 845 this morning. She reports it was normal before that. She also reports that he was having a little bit of gait instability this morning. He does normally have some gait instability but it is more than normal. Upon arrival here the neurological exam is difficult because the patient does not really cooperate with instructions and that is fairly normal according to his caregiver. I see no obvious facial droop. Again difficult to assess speech because he just mainly moans and that is normal. He does not have difficulty with drinking. His gag reflex is strong. He does have a chronic disconjugate gaze. He does appear to move all extremities fairly well and strength appears to be preserved. Sensation appears to be grossly preserved. He does have a right acute otitis media which may be contributing to some symptoms. No syncope. No evidence of any seizure here. As the patient is a very difficult neurological exam and I am not familiar with him, I'm going to go ahead and do a head CT on him to make sure we do not find any surprises. At this point I do not believe he has had a stroke but am not entirely certain. Timing/Duration: 1 hour Severity: mild Improving Factors: nothing Worsening Factors: nothing Allergies/Adverse Reactions: Allergies Acetazolamide [From Diamox Sequels] Allergy (Verified 05/10/17 17:53) Home Medications: Ambulatory Orders Amoxicillin [Amoxil] 500 mg PO Q8HRS #30 cap 03/22/14 Carbamazepine Tab [Tegretol] 300 mg PO BID 03/22/14 Carbamide Peroxide Otic [Debrox Otic] 15 ml BOTH_EARS WKLY 03/22/14 Clorazepate Dipotassium [Tranxene T] 7.5 mg PO TID 03/22/14 Clorazepate Dipotassium [Tranxene T] 15 mg PO BEDTIME 03/22/14 Lamotrigine [Lamictal Odt] 125 mg PO TID 03/22/14 Loratadine [Claritin] 10 mg PO DAILY 03/22/14 Phenytoin Sodium Cap Extended [Dilantin Cap] 100 mg PO DAILY 03/22/14 Phenytoin Sodium Cap Extended [Dilantin Cap] 300 mg PO BEDTIME 03/22/14 Risperidone [Risperdal] 3 mg PO BID 03/22/14 Rosuvastatin [Crestor] 2.5 mg PO DAILY 03/22/14 Tiagabine HCl [Gabitril] 12 mg PO TID 03/22/14 Topiramate [Topamax] 50 mg PO BID 03/22/14 Cephalexin [Keflex] 500 mg PO QID #28 cap 06/10/15 Albuterol Inhaler [Ventolin Hfa Inhaler] 2 puff INH Q4HR PRN #1 inh 05/10/17 Albuterol Sulfate Nebs [Proventil Nebs] 2.5 mg INH Q4HR PRN #90 vial 05/10/17 Benzonatate Perles [Tessalon Perles] 200 mg PO TID PRN #30 cap 05/10/17 Levofloxacin [Levaquin] 750 mg PO DAILY 5 Days #5 tablet 05/10/17 Spacer/Aerosol-Holding Chamber [Aerochamber Plus] 1 mis INH DAILY #1 05/10/17 Amoxicillin & Pot Clavulanate [Augmentin Tab] 875 mg PO BID #10 tab 08/29/18 Clindamycin HCl [Clindamycin Hydrochloride] 300 mg PO QID #40 cap 01/18/19 Amoxicillin & Pot Clavulanate [Augmentin Tab] 875 mg PO BID #14 tab 05/17/19 Aspirin (Buffered) 325 mg [Bufferin 325 mg] 1 ea PO QD #60 tab 05/17/19 Review of Systems - Review of Systems Review of Systems: 05/17/19 09:05 unable to obtain any accurate review of systems from the patient. Most information comes from the caregiver. It is therefore limited to secondhand information. Constitutional: States: no symptoms reported EENTM: States: ear pain - right-sided Respiratory: States: no symptoms reported Cardiology: States: no symptoms reported Gastrointestinal/Abdominal: States: no symptoms reported Genitourinary: States: no symptoms reported Musculoskeletal: States: no symptoms reported Skin: States: no symptoms reported Neurological: States: see HPI - numerous chronic changes. Endocrine: States: no symptoms reported Past Medical History (General) - Patient Medical History Hx Seizures: Yes Hx Stroke: No Hx Dementia: No Hx Asthma: Yes Hx of COPD: No Hx Cardiac Disorders: No Hx Congestive Heart Failure: No Hx Pacemaker: No Hx Hypertension: No Hx Thyroid Disease: No Hx Diabetes: No Hx Gastroesophageal Reflux: No Hx Renal Disease: No Hx Cancer: No Hx of HIV: No Hx Hepatitis C: No Hx MRSA: No Surgical History: no surgical history - Vaccination History Hx Tetanus, Diphtheria Vaccination: Yes Hx Influenza Vaccination: No Hx Pneumococcal Vaccination: No Immunizations Up to Date: No - Social History Hx Tobacco Use: No Hx Chewing Tobacco Use: No Hx Alcohol Use: No Hx Substance Use: No Hx Substance Use Treatment: No Hx Depression: No Feels Threatened In Home Enviroment: No Feels Threatened In a Relationship: No Hx Physical Abuse: No Hx Emotional Abuse: No Hx Suspected Abuse: No - Female History Patient : No Family Medical History - Family History Mother Family History: Unknown Living Status: Unknown Hx Family Asthma: No Hx Family Congestive Heart Failure: No Physical Exam - Physical Exam General Appearance: Alert, Comfortable, No apparent distress Eye Exam: bilateral normal - he does have disconjugate gaze on the right primarily Ears, Nose, Throat: hearing grossly normal, abnormal TM (R), nasal congestion, pharyngeal erythema Neck: full range of motion, supple Respiratory: lungs clear, normal breath sounds, no respiratory distress, no accessory muscle use Cardiovascular/Chest: normal peripheral pulses, regular rate, rhythm, no edema Peripheral Pulses: radial,right: 2+, radial,left: 2+, dorsalis pedis,right: 2+, dorsalis pedis,left: 2+ Gastrointestinal/Abdominal: non tender, soft Rectal Exam: deferred Back Exam: no CVA tenderness, no vertebral tenderness Extremity: normal range of motion, non-tender, normal inspection, no pedal edema, normal capillary refill 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 This appears to have resolved. Head CT shows no acute changes. No other new focal neurological deficits are appreciable. He does have a right acute otitis media that will be treated with Augmentin. The patient apparently does have a history of showing this pattern of neurological change after a seizure. It is likely that he had an unwitnessed seizure this mo rning. He has however had a stroke in the past, so I'm therefore going to place the patient on 2 months of aspirin. He needs to follow back up with his primary care doctor to see if they want to continue this as a prophylactic measure on the longer term. ER warnings were given for any worsening. The patient has been monitored for several hours. He appears to be at his baseline otherwise. ruben cerna [id number] - Results/Orders Results/Orders: head CT shows old previous infarct and chronic volume loss. No obvious new pathology. No bleeding. Laboratory Tests 05/17/19 05/17/19 05/17/19 09:30 09:30 09:30 WBC 6.1 RBC 4.50 L Hgb 14.5 Hct 42.1 MCV 93.5 MCH 32.3 H MCHC 34.6 RDW 12.8 Plt Count 228 MPV 8.0 Absolute Neuts (auto) 3.90 Absolute Lymphs (auto) 1.40 Absolute Monos (auto) 0.40 Absolute Eos (auto) 0.30 Absolute Basos (auto) 0.00 Neutrophils % 65.0 Lymphocytes % 23.6 Monocytes % 6.2 Eosinophils % 5.0 Basophils % 0.2 PT 10.1 INR 1.02 PTT (SP) 25.0 D-Dimer, Quantitative < 0.19 Sodium 139 Potassium 3.4 L Chloride 101 Carbon Dioxide 28 Anion Gap 13.4 BUN 8 Creatinine 0.79 BUN/Creatinine Ratio 10.1 Random Glucose 180 H Serum Osmolality 280.4 Calcium 8.8 Magnesium 1.9 Total Bilirubin 0.5 AST 21 ALT 22 Alkaline Phosphatase 136 H Serum Total Protein 7.0 Albumin 4.2 Globulin 2.8 Albumin/Globulin Ratio 1.5 TSH 1.35 Phenytoin 05/17/19 09:30 WBC RBC Hgb Hct MCV MCH MCHC RDW Plt Count MPV Absolute Neuts (auto) Absolute Lymphs (auto) Absolute Monos (auto) Absolute Eos (auto) Absolute Basos (auto) Neutrophils % Lymphocytes % Monocytes % Eosinophils % Basophils % PT INR PTT (SP) D-Dimer, Quantitative Sodium Potassium Chloride Carbon Dioxide Anion Gap BUN Creatinine BUN/Creatinine Ratio Random Glucose Serum Osmolality Calcium Magnesium Total Bilirubin AST ALT Alkaline Phosphatase Serum Total Protein Albumin Globulin Albumin/Globulin Ratio TSH Phenytoin 10.1 Departure - Departure Clinical Impression: Right acute otitis media Epilepsy Qualifiers: Epilepsy type: unspecified Intractability: intractable Status epilepticus: without status epilepticus Qualified Code(s): G40.919 - Epilepsy, unspecified, intractable, without status epilepticus Disposition: Discharge to Home or Self Care Condition: Fair Departure Forms: ED Discharge - Pt. Copy, Patient Portal Self Enrollment Instructions: Seizures, Adult (DC), Ear Infections (Otitis Media) (DC) Diet: regular diet Activity: increase activity as tolerated Referrals: Valentin Reed III, MD [Primary Care Provider] - 1-2 Weeks Prescriptions: Amoxicillin & Pot Clavulanate [Augmentin Tab] 875 mg PO BID #14 tab Aspirin (Buffered) 325 mg [Bufferin 325 mg] 1 ea PO QD #60 tab Home Medications: Ambulatory Orders Amoxicillin [Amoxil] 500 mg PO Q8HRS #30 cap 03/22/14 Carbamazepine Tab [Tegretol] 300 mg PO BID 03/22/14 Carbamide Peroxide Otic [Debrox Otic] 15 ml BOTH_EARS WKLY 03/22/14 Clorazepate Dipotassium [Tranxene T] 7.5 mg PO TID 03/22/14 Clorazepate Dipotassium [Tranxene T] 15 mg PO BEDTIME 03/22/14 Lamotrigine [Lamictal Odt] 125 mg PO TID 03/22/14 Loratadine [Claritin] 10 mg PO DAILY 03/22/14 Phenytoin Sodium Cap Extended [Dilantin Cap] 100 mg PO DAILY 03/22/14 Phenytoin Sodium Cap Extended [Dilantin Cap] 300 mg PO BEDTIME 03/22/14 Risperidone [Risperdal] 3 mg PO BID 03/22/14 Rosuvastatin [Crestor] 2.5 mg PO DAILY 03/22/14 Tiagabine HCl [Gabitril] 12 mg PO TID 03/22/14 Topiramate [Topamax] 50 mg PO BID 03/22/14 Cephalexin [Keflex] 500 mg PO QID #28 cap 06/10/15 Albuterol Inhaler [Ventolin Hfa Inhaler] 2 puff INH Q4HR PRN #1 inh 05/10/17 Albuterol Sulfate Nebs [Proventil Nebs] 2.5 mg INH Q4HR PRN #90 vial 05/10/17 Benzonatate Perles [Tessalon Perles] 200 mg PO TID PRN #30 cap 05/10/17 Levofloxacin [Levaquin] 750 mg PO DAILY 5 Days #5 tablet 05/10/17 Spacer/Aerosol-Holding Chamber [Aerochamber Plus] 1 mis INH DAILY #1 05/10/17 Amoxicillin & Pot Clavulanate [Augmentin Tab] 875 mg PO BID #10 tab 08/29/18 Clindamycin HCl [Clindamycin Hydrochloride] 300 mg PO QID #40 cap 01/18/19 Amoxicillin & Pot Clavulanate [Augmentin Tab] 875 mg PO BID #14 tab 05/17/19 Aspirin (Buffered) 325 mg [Bufferin 325 mg] 1 ea PO QD #60 tab 05/17/19 Additional Instructions: the patient is a 43-year-old male with long-term neurological problems presenting with possibly a mild facial droop on the right noticed by his caregiver early this morning. This appears to have resolved. Head CT shows no acute changes. No other new focal neurological deficits are appreciable. He does have a right acute otitis media that will be treated with Augmentin. The patient apparently does have a history of showing this pattern of neurological change after a seizure. It is likely that he had an unwitnessed seizure this morning. He has however had a stroke in the past, so I'm therefore going to place the patient on 2 months of aspirin. He needs to follow back up with his primary care doctor to see if they want to continue this as a prophylactic measure on the longer term. ER warnings were given for any worsening. The patient has been monitored for several hours. He appears to be at his baseline otherwise. As a side note, the blood sugar was mildly elevated. This should be followed with his primary care doctor as the neurological medications do have a tendency to push patients towards diabetes.
--- NOTE | 2019-05-17 09:42 | CT ---
EXAM DESCRIPTION: Head CT without contrast CLINICAL HISTORY: possible cva, chronic encephalopathy COMPARISON: Previous CT head March 22, 2014 TECHNIQUE: Noncontrast head CT was performed with routine protocol. FINDINGS: Old infarct in the right periventricular region with right lateral ventricle larger than left. Large sulci are also noted. Otherwise normal oconnor-white matter differentiation. Ventricles and sulci are prominent consistent with age advanced cerebral volume loss. Compared to previous study March 22, 2014, appearance is very similar at that time. No high density hemorrhage, focal edema or shift of the midline. No sulcal effacement. Normal orbital contents. Basilar cisterns appear clear. Intact calvarium with no fracture or lytic lesion. Normal aeration of tympanic cavities and mastoid air cells. No fluid levels in the paranasal sinuses. Skull base appears intact. Symmetrical internal auditory canals. Coronal and sagittal reformatted images confirm the findings. Scalp densities may be related to old trauma. These appear unchanged. IMPRESSION: No acute intracranial pathologic process. No significant change compared to the previous study in 2013. This exam was performed according to our departmental dose-optimization program, which includes automated exposure control, adjustment of the mA and/or kV according to patient size and/or use of iterative reconstruction technique. Total DLP equals 1834.11 mGycm. Electronically signed by: Mitchell Liang MD 05/17/2019 9:41 AM [facility]
[2019-05-17] MEDS ORDERED: ASPIRIN TABLET 325 MG TAB PO ONE (09:47)
[2019-05-17] MEDS ORDERED: AMOXICILLIN & POT CLAVULANATE 875 MG TAB PO ONE (10:52)
[2019-05-17 11:18] VITALS: BP 109/53
== END 2019-05-17 11:00 | disposition home or self-care (01) ==
LOC: ER 08:48
DX: G40.919 Epilepsy, unspecified, intractable, without status epilepticus (principal); H66.91 Otitis media, unspecified, right ear; G93.40 Encephalopathy, unspecified; J45.909 Unspecified asthma, uncomplicated; Z79.899 Other long term (current) drug therapy; Z86.73 Personal history of transient ischemic attack (TIA), and cerebral infarction without residual deficits

== ENCOUNTER → 2019-08-31 | Outpatient (CLI) | payer MEDICARE, MEDICAID | LOC: GMAL 15:16 | PROVIDERS: ATTEND Family Medicine | DX: D51.3 Other dietary vitamin B12 deficiency anemia (principal); R53.83 Other fatigue; E55.9 Vitamin D deficiency, unspecified; E16.2 Hypoglycemia, unspecified; E78.49 Other hyperlipidemia; Z79.899 Other long term (current) drug therapy ==

== ENCOUNTER 2019-10-24 12:46 | Emergency (ER) | payer MEDICARE, MEDICAID ==
[2019-10-24 13:08] VITALS: BP 151/99; TEMP 96.7
--- NOTE | 2019-10-24 13:15 | ED.PDOC ---
History of Present Illness - General Chief Complaint: General Stated Complaint: labored breathing Time Seen by Provider: 10/24/19 12:50 Source: patient, other Exam Limitations: clinical condition - History of Present Illness Initial Comments: The patient is a 43-year-old male presented emergency room after having had a seizure but also caregiver reporting an increased rate of breathing since the seizure. Patient is actually not tachypneic here at the time of arrival. He is alert and in his normal state of mind. He does have chronic limitations due to previous trauma. He does have a history of epilepsy and the Dilantin dosage was decreased last night as per the neurologist orders. It had been decreased one time before earlier in the month as well. This was apparently a partial seizure affecting the face. No loss of consciousness. It lasted 1 minute. His last previous seizure before this was about 6 months ago. Caregiver does report some increased frequency of difficulty swallowing. He does have a longstanding history of recurrent aspiration events. Timing/Duration: momentarily Severity: mild Improving Factors: nothing Worsening Factors: nothing Allergies/Adverse Reactions: Allergies Acetazolamide [From Diamox Sequels] Allergy (Verified 10/24/19 13:08) Home Medications: Ambulatory Orders Amoxicillin [Amoxil] 500 mg PO Q8HRS #30 cap 03/22/14 Carbamazepine Tab [Tegretol] 300 mg PO BID 03/22/14 Carbamide Peroxide Otic [Debrox Otic] 15 ml BOTH_EARS WKLY 03/22/14 Clorazepate Dipotassium [Tranxene T] 7.5 mg PO TID 03/22/14 Clorazepate Dipotassium [Tranxene T] 15 mg PO BEDTIME 03/22/14 Lamotrigine [Lamictal Odt] 125 mg PO TID 03/22/14 Loratadine [Claritin] 10 mg PO DAILY 03/22/14 Phenytoin Sodium Cap Extended [Dilantin Cap] 100 mg PO DAILY 03/22/14 Phenytoin Sodium Cap Extended [Dilantin Cap] 300 mg PO BEDTIME 03/22/14 Risperidone [Risperdal] 3 mg PO BID 03/22/14 Rosuvastatin [Crestor] 2.5 mg PO DAILY 03/22/14 Tiagabine HCl [Gabitril] 12 mg PO TID 03/22/14 Topiramate [Topamax] 50 mg PO BID 03/22/14 Cephalexin [Keflex] 500 mg PO QID #28 cap 06/10/15 Albuterol Inhaler [Ventolin Hfa Inhaler] 2 puff INH Q4HR PRN #1 inh 05/10/17 Albuterol Sulfate Nebs [Proventil Nebs] 2.5 mg INH Q4HR PRN #90 vial 05/10/17 Benzonatate Perles [Tessalon Perles] 200 mg PO TID PRN #30 cap 05/10/17 Levofloxacin [Levaquin] 750 mg PO DAILY 5 Days #5 tablet 05/10/17 Spacer/Aerosol-Holding Chamber [Aerochamber Plus] 1 mis INH DAILY #1 05/10/17 Amoxicillin & Pot Clavulanate [Augmentin Tab] 875 mg PO BID #10 tab 08/29/18 Clindamycin HCl [Clindamycin Hydrochloride] 300 mg PO QID #40 cap 01/18/19 Amoxicillin & Pot Clavulanate [Augmentin Tab] 875 mg PO BID #14 tab 05/17/19 Aspirin (Buffered) 325 mg [Bufferin 325 mg] 1 ea PO QD #60 tab 05/17/19 Amoxicillin & Pot Clavulanate [Augmentin Tab] 875 mg PO BID #8 tab 10/24/19 Review of Systems - Review of Systems Review of Systems: 10/24/19 13:15 Patient unable to give a review of systems given chronic limitations. Past Medical History (General) - Patient Medical History Hx Seizures: Yes Hx Stroke: No Hx Dementia: No Hx Asthma: Yes Hx of COPD: No Hx Cardiac Disorders: No Hx Congestive Heart Failure: No Hx Pacemaker: No Hx Hypertension: No Hx Thyroid Disease: No Hx Diabetes: No Hx Gastroesophageal Reflux: No Hx Renal Disease: No Hx Cancer: No Hx of HIV: No Hx Hepatitis C: No Hx MRSA: No - Vaccination History Hx Tetanus, Diphtheria Vaccination: Yes Hx Influenza Vaccination: No Hx Pneumococcal Vaccination: No - Social History Hx Tobacco Use: No Hx Chewing Tobacco Use: No Hx Alcohol Use: No Hx Substance Use: No Hx Substance Use Treatment: No Hx Depression: No Hx Physical Abuse: No Hx Emotional Abuse: No Hx Suspected Abuse: No - Female History Patient : No Family Medical History - Family History Mother Family History: Unknown Living Status: Unknown Hx Family Asthma: No Hx Family Congestive Heart Failure: No Physical Exam - Physical Exam General Appearance: Alert, Comfortable, No apparent distress Eye Exam: bilateral other - Chronic changes are present Ears, Nose, Throat: normal pharynx Neck: non-tender, supple Respiratory: lungs clear, normal breath sounds, no respiratory distress, no accessory muscle use Cardiovascular/Chest: normal peripheral pulses, regular rate, rhythm, no edema Peripheral Pulses: radial,right: 2+, radial,left: 2+ Gastrointestinal/Abdominal: non tender, soft Rectal Exam: deferred Back Exam: no CVA tenderness, no vertebral tenderness Extremity: normal range of motion, non-tender, normal inspection, no pedal edema, normal capillary refill 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 Given the recent reduction in his Dilantin, I am recommending that they resume his previous Dilantin dosing, and follow along to see if this gets back to controlling the seizures. Given his frequent history of aspiration with subsequent developing pneumonias, I am going to place the patient on Augmentin for 4 days twice daily. Lungs are clear at this time. Vital signs are reassuring. They do need to keep routine follow-up with his neurologist. ER warnings are given. The patient received an extra 100 mg dose of Dilantin here today. ruben cerna [id number] 10/24/19 13:19 Departure - Departure Clinical Impression: Epilepsy Qualifiers: Epilepsy type: partial symptomatic Partial seizure type: with simple partial seizures Intractability: intractable Status epilepticus: without status epilepticus Qualified Code(s): G40.119 - Localization-related (focal) (partial) symptomatic epilepsy and epileptic syndromes with simple partial seizures, intractable, without status epilepticus Disposition: Discharge to Home or Self Care Condition: Fair Departure Forms: ED Discharge - Pt. Copy, Patient Portal Self Enrollment Instructions: Seizures, Adult (DC) Diet: regular diet Activity: increase activity as tolerated Referrals: Valentin Reed III, MD [Primary Care Provider] - 1-2 Weeks Prescriptions: Amoxicillin & Pot Clavulanate [Augmentin Tab] 875 mg PO BID #8 tab Home Medications: Ambulatory Orders Amoxicillin [Amoxil] 500 mg PO Q8HRS #30 cap 03/22/14 Carbamazepine Tab [Tegretol] 300 mg PO BID 03/22/14 Carbamide Peroxide Otic [Debrox Otic] 15 ml BOTH_EARS WKLY 03/22/14 Clorazepate Dipotassium [Tranxene T] 7.5 mg PO TID 03/22/14 Clorazepate Dipotassium [Tranxene T] 15 mg PO BEDTIME 03/22/14 Lamotrigine [Lamictal Odt] 125 mg PO TID 03/22/14 Loratadine [Claritin] 10 mg PO DAILY 03/22/14 Phenytoin Sodium Cap Extended [Dilantin Cap] 100 mg PO DAILY 03/22/14 Phenytoin Sodium Cap Extended [Dilantin Cap] 300 mg PO BEDTIME 03/22/14 Risperidone [Risperdal] 3 mg PO BID 03/22/14 Rosuvastatin [Crestor] 2.5 mg PO DAILY 03/22/14 Tiagabine HCl [Gabitril] 12 mg PO TID 03/22/14 Topiramate [Topamax] 50 mg PO BID 03/22/14 Cephalexin [Keflex] 500 mg PO QID #28 cap 06/10/15 Albuterol Inhaler [Ventolin Hfa Inhaler] 2 puff INH Q4HR PRN #1 inh 05/10/17 Albuterol Sulfate Nebs [Proventil Nebs] 2.5 mg INH Q4HR PRN #90 vial 05/10/17 Benzonatate Perles [Tessalon Perles] 200 mg PO TID PRN #30 cap 05/10/17 Levofloxacin [Levaquin] 750 mg PO DAILY 5 Days #5 tablet 05/10/17 Spacer/Aerosol-Holding Chamber [Aerochamber Plus] 1 mis INH DAILY #1 05/10/17 Amoxicillin & Pot Clavulanate [Augmentin Tab] 875 mg PO BID #10 tab 08/29/18 Clindamycin HCl [Clindamycin Hydrochloride] 300 mg PO QID #40 cap 01/18/19 Amoxicillin & Pot Clavulanate [Augmentin Tab] 875 mg PO BID #14 tab 05/17/19 Aspirin (Buffered) 325 mg [Bufferin 325 mg] 1 ea PO QD #60 tab 05/17/19 Amoxicillin & Pot Clavulanate [Augmentin Tab] 875 mg PO BID #8 tab 10/24/19 Additional Instructions: The patient is a 43-year-old male with a history of epilepsy presenting after a partial seizure earlier in the day. Given the recent reduction in his Dilantin, I am recommending that they resume his previous Dilantin dosing, and follow along to see if this gets back to controlling the seizures. Given his frequent history of aspiration with subsequent developing pneumonias, I am going to place the patient on Augmentin for 4 days twice daily. Lungs are clear at this time. Vital signs are reassuring. They do need to keep routine follow-up with his neurologist. ER warnings are given.
[2019-10-24 13:25] VITALS: O2SAT 97
== END 2019-10-24 13:25 | disposition home or self-care (01) ==
LOC: ER 12:46
DX: G40.119 Localization-related (focal) (partial) symptomatic epilepsy and epileptic syndromes with simple partial seizures, intractable, without status epilepticus (principal); R06.4 Hyperventilation; Z87.01 Personal history of pneumonia (recurrent); Z79.899 Other long term (current) drug therapy; Z79.82 Long term (current) use of aspirin

== ENCOUNTER 2019-12-14 13:20 | Emergency (ER) | payer MEDICARE, MEDICAID ==
--- NOTE | 2019-12-14 13:27 | ED.PDOC ---
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 Patient has hx of epilepsy, and recurrent aspiration pneumonia. Last seizure 10/2019. No fever, but increase cough past 2-3 days. no known covid exposure, but does live [facility]. Also complains of right ear pain and a mild headache. denies any falls or injuries. Seems to be more agitated per child care group leader. no violence. Allergies/Adverse Reactions: Allergies Acetazolamide [From Diamox Sequels] Allergy (Verified 12/14/19 14:12) Home Medications: Ambulatory Orders Carbamazepine Tab [Tegretol] 300 mg PO BID 03/22/14 Carbamide Peroxide Otic [Debrox Otic] 15 ml BOTH_EARS WKLY 03/22/14 Clorazepate Dipotassium [Tranxene T] 7.5 mg PO TID 03/22/14 Clorazepate Dipotassium [Tranxene T] 15 mg PO BEDTIME 03/22/14 Lamotrigine [Lamictal Odt] 125 mg PO TID 03/22/14 Loratadine [Claritin] 10 mg PO DAILY 03/22/14 Phenytoin Sodium Cap Extended [Dilantin Cap] 100 mg PO DAILY 03/22/14 Phenytoin Sodium Cap Extended [Dilantin Cap] 300 mg PO BEDTIME 03/22/14 Risperidone [Risperdal] 3 mg PO BID 03/22/14 Rosuvastatin [Crestor] 2.5 mg PO DAILY 03/22/14 Tiagabine HCl [Gabitril] 12 mg PO TID 03/22/14 Clindamycin HCl [Clindamycin Hydrochloride] 300 mg PO Q8H 7 Days #21 cap 12/14/19 Famotidine [Pepcid] 20 mg PO BID #28 tab 12/14/19 Fluticasone Prop 0.05% Nasal [Flonase Nasal [place]] 1 spray BNAS PC 10 Days #1 spray 12/14/19 Review of Systems - Review of Systems Constitutional: Denies: fever, malaise, weakness EENTM: States: ear pain. Denies: tearing, ear discharge, nose congestion, throat pain Respiratory: States: cough. Denies: orthopnea, short of breath, wheezing Cardiology: Denies: chest pain, edema, palpitations Gastrointestinal/Abdominal: Denies: abdominal pain, constipation, diarrhea, nausea, vomiting Genitourinary: Denies: discharge, dysuria, frequency, hematuria Musculoskeletal: Denies: joint swelling Skin: Denies: rash Neurological: States: headache. Denies: seizure, tremors Endocrine: Denies: intolerance to cold, intolerance to heat Hematologic/Lymphatic: Denies: anemia, blood clots, easy bleeding Unable to Obtain Due To: other - mental delay ROS per habitat conservation planner Past Medical History (General) - Patient Medical History Hx Seizures: Yes Hx Stroke: No Hx Dementia: No Hx Asthma: Yes Hx of COPD: No Hx Cardiac Disorders: No Hx Congestive Heart Failure: No Hx Pacemaker: No Hx Hypertension: No Hx Thyroid Disease: No Hx Diabetes: No Hx Gastroesophageal Reflux: No Hx Renal Disease: No Hx Cancer: No Hx of HIV: No Hx Hepatitis C: No Hx MRSA: No - Vaccination History Hx Tetanus, Diphtheria Vaccination: Yes Hx Influenza Vaccination: No Hx Pneumococcal Vaccination: No - Social History Hx Tobacco Use: No Hx Chewing Tobacco Use: No Hx Alcohol Use: No Hx Substance Use: No Hx Substance Use Treatment: No Hx Depression: No Hx Physical Abuse: No Hx Emotional Abuse: No Hx Suspected Abuse: No - Female History Patient : No Family Medical History - Family History Mother Family History: Unknown Living Status: Unknown Hx Family Asthma: No Hx Family Congestive Heart Failure: No Physical Exam - Physical Exam General Appearance: Alert, No apparent distress Ears, Nose, Throat: hearing grossly normal, normal ENT inspection, normal pharynx, other - scarring noted on bilateral TM, no erythema. Neck: non-tender, full range of motion, supple, normal inspection Respiratory: chest non-tender, normal breath sounds, no respiratory distress, no accessory muscle use, rales Cardiovascular/Chest: normal peripheral pulses, regular rate, rhythm, no edema, no gallop, no JVD, no murmur, other - HR 93 Peripheral Pulses: radial,right: 2+, radial,left: 2+ Gastrointestinal/Abdominal: normal bowel sounds, non tender, soft, no organomegaly, no pulsatile mass Rectal Exam: deferred Back Exam: normal inspection, no CVA tenderness, no vertebral tenderness Extremity: normal range of motion, non-tender, normal inspection, no pedal edema, no calf tenderness, normal capillary refill Neurologic: senior accounting clerk II-XII nml as tested, no motor/sensory deficits, alert, normal mood/affect, oriented x 3 Skin Exam: normal color, warm/dry Lymphatic: no adenopathy Progress - Progress Progress: 12/14/19 14:02 will obtain blood work, ekg, cxr. Patient given 600 mg of clindamycin due to possible aspiration pneumonia. Patient also complains of headache over right craniotomy scar, caregiver states this is new for him. Iburpofen for headache. Patient resting comfortably. no apparent respiratory distress. mild dry cough noted occasionally. 12/14/19 14:15 EKG shows sinus tachycardia, artifact. no evidence of ischemia. CXR does appear to have chronic atelectasis. Due to persistent cough and [facility] care facility will order covid and ct scan. CT chest and head negative for acute pathology. HR normalized to 89 bpm. Tolerating fluids without evidence of aspiration. VSS 12/14/19 15:30 symptoms improved. I feel his cough may be due to chronic GERD or PND. Continue with pepcid BID. Will add flonase daily for 10 days to see if this helps. Clindamycin for prophylaxis due to history of aspiration pneumonia. Strict return precautions given. safety deposit boxes custodian acknowledge understanding and agrees to plan. 12/14/19 16:oo The data reviewed when caring for this patient included: nurse notes, prior records, home health records, etc. The history and assessments from nurses notes were reviewed and considered, and the patient's home medication list was also reviewed and considered. My assessment and the results of testing completed here in the ED were discussed with the patient/caregiver. All questions were answered, and they express understanding of my assessment and the plan. They have been instructed to return if their symptoms worsen, and have been asked to follow up with their primary care physician to recheck today's presenting complaint. I have reviewed medication, benefits, alternative and side effects. 12/14/19 16:31 - Results/Orders Results/Orders: Laboratory Results WBC 8.1 K/mm3 (4.8-10.8) 12/14/19 13:55 RBC 4.50 M/mm3 (4.70-6.10) L 12/14/19 13:55 Hgb 14.3 gm/dL (14.0-18.0) 12/14/19 13:55 Hct 41.6 % (42.0-52.0) L 12/14/19 13:55 MCV 92.5 fl (80.0-94.0) 12/14/19 13:55 MCH 31.8 pg (27.0-31.0) H 12/14/19 13:55 MCHC 34.4 g/dL (33.0-37.0) 12/14/19 13:55 RDW 12.6 % (11.5-14.5) 12/14/19 13:55 Plt Count 285 K/mm3 (130-400) 12/14/19 13:55 MPV 7.8 fl (7.40-10.4) 12/14/19 13:55 Absolute Neuts (auto) 4.80 K/uL (1.8-6.8) 12/14/19 13:55 Absolute Lymphs (auto) 2.40 K/uL (1.0-3.4) 12/14/19 13:55 Absolute Monos (auto) 0.50 K/uL (0.2-0.8) 12/14/19 13:55 Absolute Eos (auto) 0.30 K/uL (0.0-0.4) 12/14/19 13:55 Absolute Basos (auto) 0.10 K/uL (0.0-0.1) 12/14/19 13:55 Neutrophils % 59.3 % (42.0-78.0) 12/14/19 13:55 Lymphocytes % 30.0 % (20.0-50.0) 12/14/19 13:55 Monocytes % 5.9 % (2.0-9.0) 12/14/19 13:55 Eosinophils % 3.9 % (1.0-5.0) 12/14/19 13:55 Basophils % 0.9 % (0.0-2.0) 12/14/19 13:55 Sodium 135 mmol/L (135-145) 12/14/19 13:55 Potassium 3.5 mmol/L (3.6-5.0) L 12/14/19 13:55 Chloride 99 mmol/L (101-111) L 12/14/19 13:55 Carbon Dioxide 26 mmol/L (21-31) 12/14/19 13:55 Anion Gap 13.5 (12-18) 12/14/19 13:55 BUN 11 mg/dL (7-18) 12/14/19 13:55 Creatinine 0.81 mg/dL (0.6-1.3) 12/14/19 13:55 BUN/Creatinine Ratio 13.6 (10-20) 12/14/19 13:55 Random Glucose 143 mg/dL (70-105) H 12/14/19 13:55 Serum Osmolality 272.0 mOsm/L (275-295) L 12/14/19 13:55 Calcium 8.9 mg/dL (8.4-10.2) 12/14/19 13:55 Total Bilirubin 0.5 mg/dL (0.2-1.0) 12/14/19 13:55 AST 20 IU/L (10-42) 12/14/19 13:55 ALT 24 IU/L (10-60) 12/14/19 13:55 Alkaline Phosphatase 122 IU/L (42-121) H 12/14/19 13:55 Troponin I < 0.02 ng/mL (0.01-0.05) 12/14/19 13:55 B-Natriuretic Peptide < 15.0 pg/ml (0-100) 12/14/19 13:55 Serum Total Protein 7.3 gm/dL (6.4-8.2) 12/14/19 13:55 Albumin 4.1 g/dl (3.2-5.5) 12/14/19 13:55 Globulin 3.2 gm/dL (2.3-3.5) 12/14/19 13:55 Albumin/Globulin Ratio 1.3 (1.1-1.9) 12/14/19 13:55 Urine Color Yellow (Yellow) 12/14/19 14:45 Urine Appearance Clear (Clear) 12/14/19 14:45 Urine pH 7.5 (4.5-7.8) 12/14/19 14:45 Ur Specific [place] 1.020 (1.005-1.030) 12/14/19 14:45 Urine Protein Negative mg/dL 12/14/19 14:45 Urine Glucose (UA) Negative mg/dL (Negative) 12/14/19 14:45 Urine Ketones Negative mg/dL (NEGATIVE) 12/14/19 14:45 Urine Blood Negative (Negative) 12/14/19 14:45 Urine Nitrite Negative 12/14/19 14:45 Urine Bilirubin Negative (NEGATIVE) 12/14/19 14:45 Urine Urobilinogen 0.2 mg/dL (0.2-1.0) 12/14/19 14:45 Ur Leukocyte Esterase Negative (Negative) 12/14/19 14:45 Urine RBC 0 /hpf 12/14/19 14:45 Urine WBC 0 /hpf 12/14/19 14:45 Ur Epithelial Cells 0 /hpf 12/14/19 14:45 Urine Bacteria 0 12/14/19 14:45 Phenytoin 4.1 ug/mL (10.0-20.0) L 12/14/19 13:50 Departure - Departure Clinical Impression: Cough in adult patient Gastroesophageal reflux disease Qualifiers: Esophagitis presence: esophagitis presence not specified Qualified Code(s): K21.9 - Gastro-esophageal reflux disease without esophagitis Disposition: Discharge to Home or Self Care Condition: Good Instructions: Cough, Adult (DC), Acid Reflux and Gastroesophageal Reflux Disease in Adults Referrals: Valentin Reed III, MD [Primary Care Provider] - 1-5 Days Prescriptions: Clindamycin HCl [Clindamycin Hydrochloride] 300 mg PO Q8H 7 Days #21 cap Fluticasone Prop 0.05% Nasal [Flonase Nasal [place]] 1 spray BNAS PC 10 Days #1 spray Famotidine [Pepcid] 20 mg PO BID #28 tab Home Medications: Ambulatory Orders Carbamazepine Tab [Tegretol] 300 mg PO BID 03/22/14 Carbamide Peroxide Otic [Debrox Otic] 15 ml BOTH_EARS WKLY 03/22/14 Clorazepate Dipotassium [Tranxene T] 7.5 mg PO TID 03/22/14 Clorazepate Dipotassium [Tranxene T] 15 mg PO BEDTIME 03/22/14 Lamotrigine [Lamictal Odt] 125 mg PO TID 03/22/14 Loratadine [Claritin] 10 mg PO DAILY 03/22/14 Phenytoin Sodium Cap Extended [Dilantin Cap] 100 mg PO DAILY 03/22/14 Phenytoin Sodium Cap Extended [Dilantin Cap] 300 mg PO BEDTIME 03/22/14 Risperidone [Risperdal] 3 mg PO BID 03/22/14 Rosuvastatin [Crestor] 2.5 mg PO DAILY 03/22/14 Tiagabine HCl [Gabitril] 12 mg PO TID 03/22/14 Clindamycin HCl [Clindamycin Hydrochloride] 300 mg PO Q8H 7 Days #21 cap 12/14/19 Famotidine [Pepcid] 20 mg PO BID #28 tab 12/14/19 Fluticasone Prop 0.05% Nasal [Flonase Nasal [place]] 1 spray BNAS PC 10 Days #1 spray 12/14/19
--- NOTE | 2019-12-14 14:15 | RAD ---
EXAM DESCRIPTION: Chest,2 Views CLINICAL HISTORY: 44 years Male, shortness of breath COMPARISON: January 18, 2018 FINDINGS: 2 views/radiographs Heart size and pulmonary vessels are within normal limits. There is no pneumothorax or pleural effusion. The lungs are clear bilaterally. The soft tissues are unremarkable. No acute osseous findings. Similar prominent left epicardial fat pad. Patient is rotated. IMPRESSION: No acute cardiopulmonary abnormality. Electronically signed by: Ervin Lu MD 12/14/2019 2:14 PM CDT
[2019-12-14] MEDS ORDERED: cefTRIAXone SODIUM 1 GM in SODIUM CHL 0.9% 50ML MIN-BAG+ 50 ML IVPB ONE (14:16)
[2019-12-14] MEDS ORDERED: CLINDAMYCIN IV 600MG 600 MG in PREMIX BAG 1 BAG IVPB ONE (14:16)
[2019-12-14] MEDS ORDERED: IBUPROFEN 200 MG TAB PO ONE (16:00)
--- NOTE | 2019-12-14 16:00 | CT ---
EXAM DESCRIPTION: CTA Chest CLINICAL HISTORY: 44 years Male, cough, shortness of breath TECHNIQUE: Volumetric CT angiographic data acquisition of the thorax was obtained. Standard axial and CT angiographic MIP sagittal and coronal images are submitted. This exam was performed according to our departmental dose-optimization program, which includes automated exposure control, adjustment of the mA and/or kV according to patient size and/or use of iterative reconstruction technique. COMPARISON: None available FINDINGS: The thyroid gland is unremarkable. No axillary adenopathy. Normal caliber thoracic aorta. No pericardial effusion. No evidence of acute process in the visualized abdomen. No mediastinal adenopathy. Evaluation limited by contrast bolus timing. The segmental arteries cannot be evaluated. There is no central pulmonary embolus identified. No pneumothorax. No pleural effusion. Scattered areas of volume loss. No focal consolidation. No suspicious pulmonary nodule. No acute or suspicious osseous abnormality. Scattered degenerative changes present. IMPRESSION: 1. No evidence of acute process in the chest. 2. Limited evaluation of the pulmonary arteries as above. No definite central pulmonary embolus identified. Electronically signed by: Ervin Lu MD 12/14/2019 3:59 PM CDT
--- NOTE | 2019-12-14 16:02 | CT ---
Study: CT of the Head. Indication: fall Technique: Axial CT images of the head were acquired without intravenous contrast. This exam was performed according to our departmental dose-optimization program, which includes automated exposure control, adjustment of the mA and/or kV according to patient size and/or use of iterative reconstruction technique. Comparison: 2019. Findings: Examination is moderately motion degraded without gross acute ischemia, acute hemorrhage, mass, mass effect, midline shift, or extra-axial fluid collection identified by CT. 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 Mild symmetric ventriculomegaly noted and appear stable compared to the prior. Paranasal sinuses are adequately aerated. Mastoid air cells are adequately aerated. Osseous structures and soft tissues are unremarkable. Impression: Motion degraded examination without gross acute intracranial abnormality by CT. Stable examination. Electronically signed by: Frank Mcguire MD 12/14/2019 3:59 PM CDT
[2019-12-14 16:31] VITALS: BP 130/95
[2019-12-14 16:45] VITALS: TEMP 97.3; O2SAT 96
== END 2019-12-14 16:32 ==
LOC: ER 13:20
DX: R05 Cough (principal); K21.9 Gastro-esophageal reflux disease without esophagitis; R00.0 Tachycardia, unspecified; R51 Headache; J45.909 Unspecified asthma, uncomplicated; F89 Unspecified disorder of psychological development; G40.909 Epilepsy, unspecified, not intractable, without status epilepticus; Z87.01 Personal history of pneumonia (recurrent); Z98.890 Other specified postprocedural states; Z79.899 Other long term (current) drug therapy; Z88.8 Allergy status to other drugs, medicaments and biological substances
CPT/HCPCS: 36415; 70450; 71046; 71275; 80053; 80185; 81001; 83880; 84484; 85025; 87040; 87077; 87186; 87635; 93005; J0696; J3490; J7050

== ENCOUNTER 2019-12-15 12:05 | Emergency (ER) | payer MEDICARE, MEDICAID ==
[2019-12-15] MEDS ORDERED: PHENYTOIN SODIUM INJ 250 MG/5 ML VIAL IV ONE (13:00)
--- NOTE | 2019-12-15 13:02 | ED.PDOC ---
History of Present Illness - General Chief Complaint: Neuro Symptoms/Deficits Stated Complaint: Increasing seizure activity, R ear pain and headache Time Seen by Provider: 12/15/19 12:25 Source: RN notes reviewed, Vital Signs reviewed, old records - ED visit from 12/14/2019, other - Caregiver Exam Limitations: other - Patient with significant mental retardation and inability to talk and this limited obtaining HPI and ROS. 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 Patient is a return visit from yesterday with complaints of worsening headache and now right ear pain and per his caregiver seems to be having an increase in his absence seizure's. Per the caregiver patient has been compliant with all his medications. Timing/Duration: 24 hours, getting worse Severity: moderate Improving Factors: nothing Worsening Factors: nothing Associated Symptoms: cough, headaches, seizure Allergies/Adverse Reactions: Allergies Acetazolamide [From Diamox Sequels] Allergy (Verified 12/15/19 12:35) Home Medications: Ambulatory Orders Carbamazepine Tab [Tegretol] 300 mg PO BID 03/22/14 Carbamide Peroxide Otic [Debrox Otic] 15 ml BOTH_EARS WKLY 03/22/14 Clorazepate Dipotassium [Tranxene T] 7.5 mg PO TID 03/22/14 Clorazepate Dipotassium [Tranxene T] 15 mg PO BEDTIME 03/22/14 Lamotrigine [Lamictal Odt] 125 mg PO TID 03/22/14 Loratadine [Claritin] 10 mg PO DAILY 03/22/14 Phenytoin Sodium Cap Extended [Dilantin Cap] 100 mg PO DAILY 03/22/14 Phenytoin Sodium Cap Extended [Dilantin Cap] 300 mg PO BEDTIME 03/22/14 Risperidone [Risperdal] 3 mg PO BID 03/22/14 Rosuvastatin [Crestor] 2.5 mg PO DAILY 03/22/14 Tiagabine HCl [Gabitril] 12 mg PO TID 03/22/14 Clindamycin HCl [Clindamycin Hydrochloride] 300 mg PO Q8H 7 Days #21 cap 12/14/19 Famotidine [Pepcid] 20 mg PO BID #28 tab 12/14/19 Fluticasone Prop 0.05% Nasal [Flonase Nasal [place]] 1 spray BNAS PC 10 Days #1 spray 12/14/19 [place]/Poly/Hc Otic Susp [Cortisporin Otic Susp] 3 drop OTIC QID #1 bttl 12/15/19 Review of Systems - Review of Systems Constitutional: States: see HPI. Denies: chills, fever EENTM: States: ear pain - right Respiratory: States: cough - non productive Neurological: States: headache Unable to Obtain Due To: other - Patient's mental retardation All other Systems: No Change from Baseline Past Medical History (General) - Patient Medical History Hx Seizures: Yes Hx Stroke: No Hx Dementia: No Hx Asthma: Yes Hx of COPD: No Hx Cardiac Disorders: No Hx Congestive Heart Failure: No Hx Pacemaker: No Hx Hypertension: No Hx Thyroid Disease: No Hx Diabetes: No Hx Gastroesophageal Reflux: No Hx Renal Disease: No Hx Cancer: No Hx of HIV: No Hx Hepatitis C: No Hx MRSA: No Surgical History: other - Vaccination History Hx Tetanus, Diphtheria Vaccination: Yes Hx Influenza Vaccination: No Hx Pneumococcal Vaccination: No - Social History Hx Tobacco Use: No Hx Chewing Tobacco Use: No Hx Alcohol Use: No Hx Substance Use: No Hx Substance Use Treatment: No Hx Depression: No Hx Physical Abuse: No Hx Emotional Abuse: No Hx Suspected Abuse: No - Female History Patient is a Female of Child Bearing Age (10 -59 yrs old): No Patient : No Family Medical History - Family History Mother Family History: Unknown Living Status: Unknown Hx Family Asthma: No Hx Family Congestive Heart Failure: No Physical Exam - Physical Exam General Appearance: Alert, Anxious, Obvious distress, Well Developed, Well Hydrated, Well Nourished Eye Exam: bilateral normal Ears, Nose, Throat: hearing grossly normal, normal pharynx, other - Right external auditory canal is red and swollen. 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 12/15/19 15:02 Physical exam shows patient has a right otitis externa. We will prescribe him Cortisporin otic suspension for this infection. Additionally, lab work shows the patient has a low phenytoin level and that has been repleted with IV phenytoin. Will discharge home with follow-up with PCP for repeat phenytoin levels. I discussed this plan of care with the patient's caregiver and they voiced understanding and agreement. Hua Ayala M.D. #[id number] - Results/Orders Results/Orders: 12/15/19 12:30 LAMOTRIGINE (LAMICTAL) Stat Laboratory Results - last 24 hr 12/15/19 12:35 Phenytoin 4.1 L Carbamazepine 7.2 Vital Signs - 8 hr 12/15/19 12/15/19 12/15/19 12:25 12:27 13:00 Temperature 97.3 F L Pulse Rate [ 95 H 95 H 88 Pulse ox] Respiratory 20 20 20 Rate Blood Pressure 165/106 133/83 [R arm] O2 Sat by Pulse 95 90 L Oximetry 12/15/19 14:00 Temperature Pulse Rate [ 80 Pulse ox] Respiratory 20 Rate Blood Pressure 131/81 [R arm] O2 Sat by Pulse 96 Oximetry Departure - Departure Clinical Impression: Seizure, Non compliance w medication regimen, Dilantin level too low Otitis externa Qualifiers: Otitis externa type: unspecified type Chronicity: acute Laterality: right Qualified Code(s): H60.501 - Unspecified acute noninfective otitis externa, right ear Time of Disposition: 15:05 Disposition: Discharge to Home or Self Care Condition: Good Departure Forms: ED Discharge - Pt. Copy, Patient Portal Self Enrollment Instructions: Outer Ear Infection (DC), Seizures, Adult (DC) Diet: resume usual diet Activity: increase activity as tolerated Referrals: Valentin Reed III, MD [Primary Care Provider] - 1-5 Days Prescriptions: [place]/Poly/Hc Otic Susp [Cortisporin Otic Susp] 3 drop OTIC QID #1 bttl Home Medications: Ambulatory Orders Carbamazepine Tab [Tegretol] 300 mg PO BID 03/22/14 Carbamide Peroxide Otic [Debrox Otic] 15 ml BOTH_EARS WKLY 03/22/14 Clorazepate Dipotassium [Tranxene T] 7.5 mg PO TID 03/22/14 Clorazepate Dipotassium [Tranxene T] 15 mg PO BEDTIME 03/22/14 Lamotrigine [Lamictal Odt] 125 mg PO TID 03/22/14 Loratadine [Claritin] 10 mg PO DAILY 03/22/14 Phenytoin Sodium Cap Extended [Dilantin Cap] 100 mg PO DAILY 03/22/14 Phenytoin Sodium Cap Extended [Dilantin Cap] 300 mg PO BEDTIME 03/22/14 Risperidone [Risperdal] 3 mg PO BID 03/22/14 Rosuvastatin [Crestor] 2.5 mg PO DAILY 03/22/14 Tiagabine HCl [Gabitril] 12 mg PO TID 03/22/14 Clindamycin HCl [Clindamycin Hydrochloride] 300 mg PO Q8H 7 Days #21 cap 12/14/19 Famotidine [Pepcid] 20 mg PO BID #28 tab 12/14/19 Fluticasone Prop 0.05% Nasal [Flonase Nasal [place]] 1 spray BNAS PC 10 Days #1 spray 12/14/19 [place]/Poly/Hc Otic Susp [Cortisporin Otic Susp] 3 drop OTIC QID #1 bttl 12/15/19
[2019-12-15] MEDS ORDERED: PHENYTOIN SODIUM INJ 100 MG/2 ML VIAL IV ONE (13:48)
[2019-12-15 16:07] VITALS: BP 104/65; TEMP 97.7; O2SAT 98
== END 2019-12-15 16:08 | disposition home or self-care (01) ==
LOC: ER 12:05
DX: R56.9 Unspecified convulsions (principal); H60.501 Unspecified acute noninfective otitis externa, right ear; R51 Headache; R05 Cough; F79 Unspecified intellectual disabilities; J45.909 Unspecified asthma, uncomplicated; Z91.14 Patient's other noncompliance with medication regimen; Z87.820 Personal history of traumatic brain injury; Z79.899 Other long term (current) drug therapy; Z88.8 Allergy status to other drugs, medicaments and biological substances

== ENCOUNTER → 2020-03-21 | Outpatient (CLI) | payer MEDICARE, MEDICAID | LOC: GMAL 17:22 | PROVIDERS: ATTEND Family Medicine | DX: R53.83 Other fatigue (principal); R73.9 Hyperglycemia, unspecified; E78.2 Mixed hyperlipidemia; Z79.899 Other long term (current) drug therapy ==